=== PATIENT | male | born 1950 | race Two or more races ===

== ENCOUNTER → 2016-08-23 | Outpatient (CLI) | payer MEDICARE, OTHER ==
--- NOTE | 2016-08-23 16:06 | RADIOLOGY REPORT (SQ) ---
EXAM DESCRIPTION: MRI LT LOWER JOINT WITHOUT COMPLETED DATE/TIME: 08/23/2016 2:52 pm REASON FOR STUDY: PAIN IN LEFT KNEE (M25.562) M25.562 PAIN IN LEFT KNEE COMPARISON: None. TECHNIQUE: Leftknee images acquired and stored on PACS. Multiplanar images include fat sensitive se quences as T1, water sensitive sequences as FST2 or STIR, cartilage sensitive sequences as FSPD, and gradient echo sequences. LIMITATIONS: Motion. FINDINGS: JOINT AND BURSAE: No effusion. BONE CORTEX AND MARROW: Marrow reconversion. ACL: Intact. No degeneration or ganglion cyst. PCL: Intact. MCL: Intact. No periligamentous edema or fluid. LCL: Intact. No periligamentous edema or fluid. MEDIAL MENISCUS: Increased signal central posterior horn without extension to the articular surface. LATERAL MENISCUS: No tears. No abnormal signal. MEDIAL COMPARTMENT: Thinning of the articular cartilage. Small osteophytes. LATERAL COMPARTMENT: Relatively preserved cartilage. PATELLA: Full-thickness blistering medial to midline. Intact retinaculum. EXTENSOR MECHANISM: Intact. Quadriceps and patella tendons normal. SOFT TISSUES: Adjacent muscles and subcutaneous tissues normal. Normal flow void in popliteal artery and vein. OTHER: No other significant finding. IMPRESSION: 1. 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 2. Intrasubstance degeneration posterior horn medial meniscus. TECHNICAL DOCUMENTATION: JOB ID: [id number] [employer]- All Rights Reserved
== END ==
LOC: RAD 13:23
PROVIDERS: ATTEND Physician Assistant
DX: M25.562 Pain in left knee (principal); M94.262 Chondromalacia, left knee